=== PATIENT | female | born 1985 | race Caucasian/White ===

== ENCOUNTER → 2017-07-29 | Outpatient (CLI) | payer OTHER | LOC: M LRY 17:34 | DX: R06.02 Shortness of breath (principal) ==

== ENCOUNTER → 2017-11-16 | Outpatient (CLI) | payer OTHER | LOC: M RAD 15:44 | DX: J34.2 Deviated nasal septum (principal) | CPT/HCPCS: 70486 ==

== ENCOUNTER 2017-12-28 09:51 | Day surgery (SDC) | payer OTHER ==
[2017-12-28 11:00] LABS: URINE PREG TEST NEGATIVE (NEGATIVE)
[2017-12-28 11:01] LABS: CONTROL LINE UCG INT CTR LINE PRESENT
[2017-12-28] MEDS ORDERED: ROCURONIUM BROMIDE 50 MG/5 ML VIAL As Ordered ×2 (12:10)
[2017-12-28] MEDS ORDERED: MIDAZOLAM INJ 2 MG/2 ML VIAL (J2250) As Ordered (12:11)
[2017-12-28] MEDS ORDERED: dexameTHASONE 4 MG/ML 1ML VIAL (J1100) As Ordered (12:11)
[2017-12-28] MEDS ORDERED: METOCLOPRAMIDE INJ 10MG/2ML VIAL (J2765) As Ordered ×2 (12:11→14:19)
[2017-12-28] MEDS ORDERED: PROPOFOL 200 MG/20 ML VIAL As Ordered (12:11)
[2017-12-28] MEDS ORDERED: fentaNYL 100 MCG/2 ML INJECTION (J3010) As Ordered ×2 (12:11→14:14)
[2017-12-28] MEDS ORDERED: ONDANSETRON 4MG/2ML VIAL (J2405) As Ordered (12:11)
[2017-12-28] MEDS ORDERED: LIDOCAINE 2% INJ 100 MG/5 ML SDV (FOR ANES.) As Ordered (12:11)
[2017-12-28] MEDS ORDERED: LIDOCAINE W/EPINEPHRINE 1% 20ML VIAL As Ordered (12:49)
[2017-12-28] MEDS ORDERED: NEOSTIGMINE 10 MG/10 ML VIAL (J2710) As Ordered (13:28)
[2017-12-28] MEDS ORDERED: GLYCOPYRROLATE INJ 0.2 MG/ML 2 ML VIAL As Ordered ×2 (13:28)
[2017-12-28] MEDS: OXYMETAZOLINE NASAL SPRAY (AFRIN) As Ordered (13:39)
[2017-12-28] MEDS: METHYLENE BLUE 0.5% (5MG/ML) 10 ML AMP (PROVAYBLUE)(Q9968 PER 1MG) As Ordered (13:39)
[2017-12-28] MEDS ORDERED: SUGAMMADEX SODIUM 500 MG/5 ML VIAL (BRIDION) As Ordered (13:48)
[2017-12-28] MEDS ORDERED: PERCOCET 5MG/325MG TAB As Ordered (14:14)
[2017-12-28] MEDS: fentaNYL 100 MCG/2 ML INJECTION (J3010) IV ×2 (14:16→14:29)
[2017-12-28] MEDS: METOCLOPRAMIDE INJ 10MG/2ML VIAL (J2765) IV (14:21)
[2017-12-28] MEDS: PERCOCET 5MG/325MG TAB PO ×2 (14:23→14:55)
[2017-12-28] MEDS ORDERED: PERCOCET 5MG/325MG TAB PO (14:30)
[2017-12-28] MEDS ORDERED: IBUPROFEN 800 MG TAB PO (14:30)
[2017-12-28] MEDS ORDERED: LR 1,000 ML IV (14:30)
[2017-12-28] MEDS ORDERED: ONDANSETRON 4MG/2ML VIAL (J2405) IV (14:30)
== END 2017-12-28 15:30 | disposition home or self-care (01) ==
LOC: M SDC 09:51
DX: J34.2 Deviated nasal septum (principal); J31.0 Chronic rhinitis
CPT/HCPCS: 30520